=== PATIENT | female | born 1970 | race Caucasian/White ===

== ENCOUNTER → 2016-10-06 | Outpatient (CLI) | payer BC, OTHER | LOC: MC.RAD 15:59 | DX: Z12.31 Encounter for screening mammogram for malignant neoplasm of breast (principal) ==

== ENCOUNTER 2016-12-24 11:30 | Emergency (ER) | payer BC, OTHER ==
[~2016-12-24] VITALS: Ht 160 cm; Wt 61.4 kg
[2016-12-24 11:40] VITALS: BP 164/90; PULSE 59; TEMP 97.3
== END 2016-12-24 14:25 | disposition left against medical advice (07) ==
LOC: COL.ER 11:30
DX: L98.8 Other specified disorders of the skin and subcutaneous tissue (principal)

== ENCOUNTER → 2017-10-06 | Outpatient (REF) ==
[2017-10-06 09:11] LABS: IRON,SERUM 65 ug/dL (35-150)
[2017-10-06 09:29] LABS: C-REACTIVE PROTEIN < 0.5 mg/dL (0.0-0.9)
[2017-10-06 10:43] LABS: TOTAL IRON BINDING CAPACITY 272 ug/dL (265-497)
== END ==
LOC: ZLAB.WCH 08:43
PROVIDERS: Family Medicine
DX: Z01.89 Encounter for other specified special examinations (principal)

== ENCOUNTER → 2018-05-06 | Outpatient (REF) | LOC: ZLAB.WCH 19:45 | DX: Z01.89 Encounter for other specified special examinations (principal) ==

== ENCOUNTER → 2018-06-24 | Outpatient (CLI) | payer BC, OTHER | LOC: COL.RAD 08:05 | DX: K59.09 Other constipation (principal); R14.3 Flatulence; R11.0 Nausea | CPT/HCPCS: A9541 ==

== ENCOUNTER → 2019-12-08 | Outpatient (CLI) | payer BC, OTHER | LOC: ZCOL.LAB 15:09 | DX: R05 Cough (principal); R51 Headache; Z20.828 Contact with and (suspected) exposure to other viral communicable diseases ==

== ENCOUNTER → 2020-08-28 | Outpatient (CLI) | payer BC, OTHER | LOC: MC.RAD 08:17 | DX: Z12.31 Encounter for screening mammogram for malignant neoplasm of breast (principal); N64.89 Other specified disorders of breast; Z98.82 Breast implant status ==

== ENCOUNTER → 2020-09-02 | Outpatient (CLI) | payer BC, OTHER | LOC: MC.RAD 07:41 | DX: R92.2 Inconclusive mammogram (principal); N64.89 Other specified disorders of breast; Z98.82 Breast implant status ==

== ENCOUNTER → 2023-02-03 | Outpatient (CLI) | payer BC, OTHER | LOC: MHCPAIN 13:29 | DX: M25.512 Pain in left shoulder (principal); M48.02 Spinal stenosis, cervical region; M54.12 Radiculopathy, cervical region | CPT/HCPCS: G0463 ==